=== PATIENT | male | born 1970 | race Caucasian/White ===

== ENCOUNTER 2017-07-07 09:40 | Emergency (ER) | payer SELFPAY ==
[~2017-07-07] VITALS: Ht 174 cm; Wt 106.0 kg
[2017-07-07 09:49] VITALS: BP 23/108
[2017-07-07] MEDS ORDERED: ASPI-1159 PO (09:54)
[2017-07-07] MEDS ORDERED: METO-396 PO (09:54)
[2017-07-07] MEDS ORDERED: SODIUM CHLORIDE 0.9% 1,000 ML IV ONE (10:06)
[2017-07-07 10:32] LABS: BASOPHILS % 0.6 % (0.0-2.0); HEMATOCRIT. 47.3 % (42.0-52.0); HEMOGLOBIN. 16.3 g/dL (14.0-18.0); LYMPHOCYTES % 17.2 % (20.0-50.0); MEAN CORPUSCULAR HEMOGLOBIN 30.1 pg (28.0-32.0); MEAN CORPUSCULAR VOLUME 87.1 fL (80.0-94.0); MONOCYTES % 7.3 % (2.0-8.0); NEUTROPHILS % 73.9 % (40.0-76.0); PLATELET 131 x1000/uL (130-400); RED BLOOD CELL COUNT 5.44 mill/uL (4.7-6.1); RED CELL DISTRIBUTION WIDTH 14.2 % (11.6-14.6)
[2017-07-07 10:39] LABS: CHLORIDE 106 mEq/L (98-107)
[2017-07-07 10:41] LABS: PARTIAL THROMBOPLASTIN TIME 27.5 sec (23.4-31.0); PROTHROMBIN TIME 10.7 sec (9.4-11.6)
[2017-07-07 12:31] LABS: CLARITY URINE CLEAR (CLEAR); COLOR URINE YELLOW (YELLOW); KETONES URINE NEGATIVE (NEGATIVE); LEUKOCYTE ESTERASE URINE TRACE (NEGATIVE); NITRITE URINE NEGATIVE (NEGATIVE); OCCULT BLOOD URINE NEGATIVE (NEGATIVE); PH URINE 6.5 (4.5-8.0); PROTEIN URINE 1+ (NEGATIVE); SPECIFIC GRAVITY URINE 1.018 (1.005-1.030); UROBILINOGEN URINE 0.2 E.U./dL (0.2-1.0)
[2017-07-07] MEDS ORDERED: CEFTRIAXONE 1 G PREMIX 50 ML IV ONE (12:45)
== END 2017-07-07 16:14 | disposition home or self-care (01) ==
LOC: ER 10:09
DX: N39.0 Urinary tract infection, site not specified (principal); I10 Essential (primary) hypertension; E78.4 Other hyperlipidemia; E78.00 Pure hypercholesterolemia, unspecified; H40.9 Unspecified glaucoma; Z79.82 Long term (current) use of aspirin; Z87.891 Personal history of nicotine dependence; Z90.49 Acquired absence of other specified parts of digestive tract
CPT/HCPCS: 36415; 74176; 80053; 81003; 83690; 85025; 85610; 85730; 87077; 87086; 87186; 96365; 99285; J0696; J7030; J7040; Z7610

== ENCOUNTER 2017-07-26 21:16 | Emergency (ER) | payer SELFPAY ==
[~2017-07-26] VITALS: Ht 167.6 cm; Wt 113.0 kg
[~2017-07-26 21:16] MED LIST: ASPI-1159 PO; METO-396 PO
[2017-07-26] MEDS ORDERED: KETOROLAC 30MG/ML VIAL IV STA (23:33)
[2017-07-26] MEDS ORDERED: SODIUM CHLORIDE 0.9% 1,000 ML IV ONE (23:33)
[2017-07-26] MEDS ORDERED: CAPTOPRIL 25MG TABLET PO ONE (23:45)
[2017-07-26] MEDS ORDERED: METOCLOPRAMIDE HCL 10MG/2ML VIAL IV ONE (23:45)
[2017-07-27 02:00] VITALS: BP 194/107
== END 2017-07-27 02:20 | disposition home or self-care (01) ==
LOC: ER 21:16
DX: I10 Essential (primary) hypertension (principal); R51 Headache; I51.7 Cardiomegaly; Z79.82 Long term (current) use of aspirin; Z90.49 Acquired absence of other specified parts of digestive tract
CPT/HCPCS: 96374; 96375; 99284; J1885; J2765; J7030; Z7610

== ENCOUNTER 2017-11-28 19:22 | Inpatient (IN) | payer OTHER, MEDICAID ==
[~2017-11-28] VITALS: Ht 175.3 cm; Wt 104.8 kg
[2017-11-28] MEDS ORDERED: ENAL20TA PO (19:41)
[2017-11-28] MEDS ORDERED: ASPIRIN 81MG TABLET PO ONE (20:30)
[2017-11-28] MEDS ORDERED: CLONIDINE 0.1MG TABLET PO ONE (20:30)
[2017-11-28] MEDS ORDERED: NITROGLYCERIN 0.4MG TABLET SL SL PRN (20:45)
[2017-11-28] MEDS ORDERED: NITROGLYCERIN OINT 1GM/INCH UDPKT TD ONE (20:45)
[2017-11-28 21:01] LABS: BASOPHILS % 0.5 % (0.0-2.0); EOSINOPHILS % 2.5 % (0.0-5.0); HEMATOCRIT. 45.8 % (42.0-52.0); HEMOGLOBIN. 15.3 g/dL (14.0-18.0); LYMPHOCYTES % 23.3 % (20.0-50.0); MEAN CORPUSCULAR HEMOGLOBIN 29.1 pg (28.0-32.0); MEAN CORPUSCULAR VOLUME 87.2 fL (80.0-94.0); MEAN PLATELET VOLUME 11.3 fl (7.4-10.4); MONOCYTES % 6.7 % (2.0-8.0); PLATELET 105 x1000/uL (130-400); RED BLOOD CELL COUNT 5.25 mill/uL (4.7-6.1); RED CELL DISTRIBUTION WIDTH 14.6 % (11.6-14.6)
[2017-11-28 21:06] LABS: CHLORIDE 106 mEq/L (98-107)
[2017-11-29] VITALS (7 sets, daily range): BP systolic 145–173; BP diastolic 69–106
[2017-11-29] MEDS ORDERED: METO100T16 PO (01:24)
[2017-11-29] MEDS ORDERED: CLON2TAB11 PO (01:26)
[2017-11-29] MEDS ORDERED: HYDRALAZINE 20MG/ML VIAL IV PRN (02:45)
[2017-11-29] MEDS ORDERED: ACETAMINOPHEN 325MG TABLET PO PRN (02:45)
[2017-11-29] MEDS ORDERED: ACETAMINOPHEN 650MG SUPP PR PRN (02:45)
[2017-11-29] MEDS ORDERED: ONDANSETRON HCL 4MG/2ML INJ IV PRN (02:45)
[2017-11-29] MEDS ORDERED: POTASSIUM CHLORIDE 20MEQ TABLET SR PO SCH (02:45)
[2017-11-29] MEDS ORDERED: CLONIDINE 0.1MG TABLET PO PRN (02:45)
[2017-11-29] MEDS: LORAZEPAM 2MG/ML CPJ IV PRN ×2 (04:26→11:18)
[2017-11-29] MEDS: ENOXAPARIN 30MG/0.3ML SYR SUBCUT SCH ×2 (06:28→17:56)
[2017-11-29] MEDS: SODIUM CHLORIDE 0.9% INJ 3ML FLUSH IVF SCH ×2 (06:28→14:00)
[2017-11-29] MEDS ORDERED: DOCUSATE SODIUM 100MG CAPSULE PO PRN (08:00)
[2017-11-29 08:55] LABS: *AMPHETAMINES SCREEN URINE NEGATIVE (NEGATIVE); *BARBITURATES SCREEN URINE NEGATIVE (NEGATIVE); *BENZODIAZEPINES SCREEN URINE NEGATIVE (NEGATIVE); *COCAINE SCREEN URINE NEGATIVE (NEGATIVE)
[2017-11-29 08:56] LABS: CANNABINOID URINE SCREEN NEGATIVE (NEGATIVE); METHADONE URINE SCREEN NEGATIVE (NEGATIVE); OPIATES URINE SCREEN NEGATIVE (NEGATIVE); PHENCYCLIDINE URINE SCREEN NEGATIVE (NEGATIVE)
[2017-11-29] MEDS ORDERED: METOPROLOL TARTRATE 100MG TABLET PO SCH (09:00)
[2017-11-29] MEDS ORDERED: CLONAZEPAM 1MG TABLET PO SCH (09:00)
[2017-11-29] MEDS ORDERED: ENALAPRIL 5MG TABLET PO SCH (09:00)
== END 2017-11-29 20:07 | disposition home or self-care (01) | DRG 199 ==
LOC: ER 19:22 → 5WST 22:50 → EDBEDREQTM 23:16 → EDBEDREQ 23:16 → ENRESERV 23:25 → 5WST 11-29 01:18
PROVIDERS: ADMIT Internal Medicine; ATTEND Internal Medicine
DX: I16.1 Hypertensive emergency (principal); D69.6 Thrombocytopenia, unspecified; F41.1 Generalized anxiety disorder; I10 Essential (primary) hypertension; Z79.899 Other long term (current) drug therapy; Z82.49 Family history of ischemic heart disease and other diseases of the circulatory system
CPT/HCPCS: 36415; 70551; 71045; 80305; 83880; 84484; 93005; 99285; J0360; J1650; J2060

== ENCOUNTER 2018-01-05 10:54 | Emergency (ER) | payer MEDICAID ==
[~2018-01-05] VITALS: Ht 167.6 cm; Wt 109.0 kg
[~2018-01-05 10:54] MED LIST changes: +CLON2TAB11 PO; +ENAL20TA PO; -METO-396 PO; +METO100T16 PO
[2018-01-05 11:00] VITALS: BP 187/125
== END 2018-01-05 12:03 | disposition left against medical advice (07) ==
LOC: ER 10:54
DX: I10 Essential (primary) hypertension (principal); Z53.21 Procedure and treatment not carried out due to patient leaving prior to being seen by health care provider